=== PATIENT | female | born 1995 ===

== ENCOUNTER 2018-12-20 07:48 | Emergency (ER) | payer BC, OTHER ==
[2018-12-20 07:51] VITALS: BMI 53.6
[2018-12-20] MEDS ORDERED: Albuterol-Ipratrop 3 mg / 0.5 (3 ml) UD IH STA (08:47)
[2018-12-20] MEDS ORDERED: Albuterol-Ipratrop 3 mg / 0.5 (3 ml) UD INH STA (08:47)
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
[2018-12-20] MEDS ORDERED: Albuterol-Ipratrop 3 mg / 0.5 (3 ml) UD ONE (09:33)
[2018-12-20 11:01] VITALS: BP 118/78; PULSE 91; RESP 19; TEMP 98.6
[2018-12-20 11:20] VITALS: O2SAT 96
== END 2018-12-20 11:01 | disposition home or self-care (01) ==
LOC: H.ER 07:48
DX: J40 Bronchitis, not specified as acute or chronic (principal)